=== PATIENT | male | born 2000 | race Caucasian/White ===

== ENCOUNTER 2021-12-23 22:41 | Emergency (ER) | payer OTHER ==
[2021-12-23 22:51] VITALS: BP 140/73
[2021-12-23] MEDS ORDERED: LIDOCAINE 1% 2 ML VIAL SUBQ STA (23:31)
--- NOTE | 2021-12-23 23:33 | ED Physician Documentation ---
PD HPI SKIN - Stated complaint Stated Complaint: MALE - Chief complaint Chief Complaint: Wound - History obtained from History obtained from: Patient - History of Present Illness Timing - onset: How many days ago (4) Timing - duration: Days (4) Timing - details: Gradual onset, Still present Location: Back Quality / character: Painful, Swelling, Draining Associated symptoms: No: Fever, Myalgias, Joint pain, Headache, Facial swelling, Dyspnea, Abd pain, N/V/D, Urinary sx Similar symptoms before: Has not had sx before Recently seen: Not recently seen - Additional information Additional information: 21-year-old Pako Guerin is a healthy young male who has developed swelling and pain near his tailbone. He has never had this previously. Tonight has started to drain he has come to the emergency department. He feels like he might have a pilonidal cyst after googling this. Review of Systems Constitutional: denies: Fever Respiratory: denies: Cough GI: denies: Vomiting, Diarrhea : denies: Dysuria, Frequency Skin: reports: Other (swelling pain drainage from tailbone) Musculoskeletal: denies: Extremity swelling Neurologic: denies: Generalized weakness, Focal weakness, Numbness PD PAST MEDICAL HISTORY - Past Medical History Past Medical History: No - Past Surgical History Past Surgical History: No - Present Medications Home Medications: Ambulatory Orders Medication Instructions Recorded Confirmed Sulfamethox/Trimeth 800/160 1 each PO BID #14 tablet 12/24/21 [Bactrim Ds] - Allergies Allergies/Adverse Reactions: Allergies Allergy/AdvReac Type Severity Reaction Status Date / Time No Known Drug Allergies Allergy Verified 12/23/21 22:51 - Social History Does the pt smoke?: No Smoking Status: Never smoker Does the pt drink ETOH?: Yes ETOH Use: Wine, Beer, Liquor Does the pt have substance abuse?: No - Immunizations Immunizations are current?: Yes - POLST Patient has POLST: No PD ED PE NORMAL - Vitals Vital signs reviewed: Yes (hypertensive ) - General General: Alert and oriented X 3, No acute distress, Well developed/nourished - HEENT HEENT: Atraumatic, PERRL, EOMI - Respiratory Respiratory: No respiratory distress - Back Back: Other (At the distal end of the spine at the gluteal cleft there is swelling and drainage point tenderness minimal erythema with bedside ultrasound there is evidence of fluid under the skin.) - Derm Derm: Normal color, Warm and dry, No rash - Extremities Extremities: No deformity, No edema - Neuro Neuro: Alert and oriented X 3, 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, No motor deficit, No sensory deficit, Normal speech Eye Opening: Spontaneous Motor: Obeys Commands Verbal: Oriented GCS Score: 15 - Psych Psych: Normal mood, Normal affect Results - Vitals Vitals: Vital Signs - 24 hr 12/23/21 22:49 Temperature 36.7 C Heart Rate 66 Respiratory 14 Rate Blood Pressure 140/73 H O2 Saturation 99 Oxygen O2 Source Room air Procedures - Abscess I&D (location) pilonidal Preparation: Confirmed with ultrasound, Betadine, Lidocaine 1% Incision: Incised with scalpel, Purulent drainage, Loculations broken, Irrigated, Packed, Culture obtained Other: Pt tolerated well, Dressing applied, Antibiotic prescribed PD MEDICAL DECISION MAKING - ED course Complexity details: considered differential, d/w patient ED course: 21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 Incision and drainage resulted in expression of significant quantity of pus. We will place the patient on sulf amethoxazole trimethoprim and I have encouraged the patient to follow-up with surgery for removal of the pilonidal cyst in the coming year. Departure - Departure Disposition: 01 Home, Self Care Clinical Impression: Pilonidal abscess of elan cleft Condition: Stable Instructions: ED Cyst Pilonidal Infected IandD Follow-Up: [facility] [Provider Group] Prescriptions: Sulfamethox/Trimeth 800/160 [Bactrim Ds] 1 each PO BID #14 tablet Comments: Pako today it looks like you have an infected pilonidal cyst and we have drained a significant mount of pus from this. There is some packing in the wound and an inch and a half should be removed each day with all of the packing removed by the third day. I have E scribed some sulfamethoxazole trimethoprim to [facility] in [place]. When this has completely resolved and there is no longer any inflammation associated with it removal of the cyst is indicated. A follow-up with surgery sometime next year is indicated.
[2021-12-24] MEDS ORDERED: SULFAMETH/TRIMETH DS 800/160 MG TABLET PO STA (00:05)
== END 2021-12-24 00:12 | disposition home or self-care (01) ==
LOC: ED 22:41
DX: L05.01 Pilonidal cyst with abscess (principal)
CPT/HCPCS: 10080; 87070; 87205; 99283; A9270